=== PATIENT | female | born 1965 | race Caucasian/White ===

== ENCOUNTER → 2022-09-22 14:31 | Outpatient (BNVA) | payer BC, SELFPAY | PROVIDERS: PCP Family Medicine; Visit Provider Family Medicine | DX: M25.551 Pain in right hip (principal) | CPT/HCPCS: 73502 ==

== ENCOUNTER 2023-06-25 06:00 | Outpatient (RCR) | payer BC, SELFPAY | END 2023-07-24 23:59 | disposition home or self-care (01) | LOC: GPT 06:00 | PROVIDERS: Visit Provider Internal Medicine Hematology & Oncology | DX: M25.512 Pain in left shoulder (principal) | CPT/HCPCS: 97110; 97140; 97161 ==

== ENCOUNTER 2023-07-25 06:00 | Outpatient (RCR) | payer BC, SELFPAY | END 2023-08-24 23:59 | disposition home or self-care (01) | LOC: GPT 06:00 | PROVIDERS: Visit Provider Internal Medicine Hematology & Oncology | DX: M25.512 Pain in left shoulder (principal) | CPT/HCPCS: 97110 ==

== ENCOUNTER 2023-08-25 06:00 | Outpatient (RCR) | payer BC, SELFPAY | END 2023-09-23 23:59 | disposition home or self-care (01) | LOC: GPT 06:00 | PROVIDERS: Visit Provider Internal Medicine Hematology & Oncology | DX: M25.512 Pain in left shoulder (principal) | CPT/HCPCS: 97110; 97112; 97530 ==